=== PATIENT | male | born 1980 | race Two or more races ===

== ENCOUNTER 2018-12-23 18:58 | Outpatient (CLI) | payer OTHER | END 2018-12-23 19:31 | disposition home or self-care (01) | LOC: RAD 18:58 | DX: M54.5 Low back pain (principal); M54.6 Pain in thoracic spine; M54.2 Cervicalgia ==

== ENCOUNTER 2022-02-18 20:47 | Emergency (ER) | payer OTHER ==
[~2022-02-18] VITALS: Ht 193 cm; Wt 85.3 kg
[2022-02-19] MEDS ORDERED: ZITHROMAX500 MG PO (01:50)
[2022-02-19] MEDS ORDERED: OSEL75CA PO (01:50)
[2022-02-19] MEDS ORDERED: DOLOGESIC 500-1 EACH PO (01:50)
== END 2022-02-19 02:54 ==
LOC: ER 20:47
DX: B34.9 Viral infection, unspecified (principal); J10.1 Influenza due to other identified influenza virus with other respiratory manifestations; Z20.822 Contact with and (suspected) exposure to COVID-19

== ENCOUNTER 2024-05-20 10:32 | Emergency (ER) | payer OTHER ==
[~2024-05-20] VITALS: Ht 193 cm; Wt 86.2 kg
[~2024-05-20 10:32] MED LIST: DOLOGESIC 500-1 EACH PO; OSEL75CA PO; ZITHROMAX500 MG PO
[2024-05-20] MEDS ORDERED: ACETAMINOPHEN 500 MG GEL..CAP PO STA (12:03)
[2024-05-20] MEDS ORDERED: ACETAMINOPHEN 500 MG GEL..CAP PO ONE (12:16)
[2024-05-20 12:20] LABS: HEMATOCRIT 44.5 % (39.0-48.0); MEAN CELL VOLUME 85.3 fL (80.0-100.00); MEAN CORPUSCULAR HEMOGLOBIN 28.8 pg (27.00-32.0); MEAN CORPUSCULAR HGB CONC 33.8 g/dl (32.0-36.0); PLATELET COUNT 169 K/uL (150-450); RED BLOOD COUNT 5.22 M/uL (4.00-6.00); RED CELL DISTRIBUTION WIDTH 13.7 % (11.5-14.5)
[2024-05-20 12:46] LABS: ALBUMIN 3.8 gm/dL (3.4-5.0); BILIRUBIN TOTAL 0.6 mg/dL (0.3-1.2); CREATININE SERUM 1.24 mg/dL (0.70-1.30); GFR 63.93; GLOBULINA 3.9 G/DL (2.4-3.5); POTASSIUM 4.56 mEq/L (3.5-5.1); TOTAL PROTEIN 7.7 gm/dL (6.4-8.2)
[2024-05-20] MEDS ORDERED: GUMSOL SPRAY30 ML MM (13:28)
[2024-05-20] MEDS ORDERED: IBU600 MG PO (13:28)
[2024-05-20] MEDS ORDERED: KETOROLAC TROMETHAMINE 30 MG VIAL IM STA (13:37)
[2024-05-20] MEDS ORDERED: KETOROLAC TROMETHAMINE 30 MG VIAL ONE (13:42)
== END 2024-05-20 13:49 | disposition home or self-care (01) ==
LOC: ER 10:33
PROVIDERS: General Practice
DX: R53.81 Other malaise (principal); J06.9 Acute upper respiratory infection, unspecified

== ENCOUNTER 2024-07-21 05:10 | Emergency (ER) | payer OTHER ==
[~2024-07-21] VITALS: Ht 193 cm; Wt 86.2 kg
[~2024-07-21 05:10] MED LIST changes: +GUMSOL SPRAY30 ML MM; +IBU600 MG PO
[2024-07-21] MEDS ORDERED: TETANUS & DIPHTHERIA TOX,ADULT 0.5 ML VIAL IM STA (05:31)
[2024-07-21] MEDS ORDERED: CEFAZOLIN SODIUM 1,000 MG VIAL IM STA (05:31)
[2024-07-21] MEDS ORDERED: CEFTRIAXONE SODIUM 1,000 MG VIAL ONE (05:37)
[2024-07-21] MEDS ORDERED: TETANUS DIPHTHERIA TOX. ADSOR 5 ML VIAL IM ONE (05:38)
[2024-07-21] MEDS ORDERED: CEFAZOLIN SODIUM 1,000 MG VIAL ONE (06:11)
[2024-07-21] MEDS ORDERED: LIDOCAINE HCL 1% 10ML VIAL ONE (06:11)
== END 2024-07-21 06:27 | disposition home or self-care (01) ==
LOC: ER 05:10
DX: S01.82XA Laceration with foreign body of other part of head, initial encounter (principal); W18.39XA Other fall on same level, initial encounter; Y93.89 Activity, other specified; Y92.012 Bathroom of single-family (private) house as the place of occurrence of the external cause

== ENCOUNTER 2024-07-30 16:25 | Emergency (ER) | payer OTHER ==
[~2024-07-30] VITALS: Ht 182.9 cm; Wt 90.7 kg
== END 2024-07-30 18:41 | disposition home or self-care (01) ==
LOC: ER 16:26
DX: Z48.02 Encounter for removal of sutures (principal)